=== PATIENT | female | born 1985 | race Two or more races ===

== ENCOUNTER 2019-04-23 04:40 | Inpatient (IN) | payer MEDICAID ==
[2019-04-23] MEDS ORDERED: LACTATED RINGER'S 1,000 ML IV (06:16)
[2019-04-23] MEDS ORDERED: MISOPROSTOL 200 MCG TAB PR ×2 (06:30→15:30)
[2019-04-23] MEDS ORDERED: CARBOPROST 250 MCG INJ IM ×2 (06:30→15:30)
[2019-04-23] MEDS ORDERED: BUTORPHANOL 2 MG INJ IV ×2 (06:30)
[2019-04-23] MEDS ORDERED: METHYLERGONOVINE 0.2 MG INJ IM ×2 (06:30→15:30)
[2019-04-23] MEDS ORDERED: OXYTOCIN 30 UNITS/LR 500 ML IV ×2 (06:30→15:30)
[2019-04-23] MEDS: MINERAL OIL LIGHT 10 ML VIAL TOP (06:30)
[2019-04-23] MEDS ORDERED: LIDOCAINE 1% (MPF) 30 ML INJ INJ (06:30)
[2019-04-23] MEDS ORDERED: IBUPROFEN 600 MG TAB PO (06:30)
[2019-04-23 07:32] LABS: ADD MAN DIFF? NO
[2019-04-23 07:37] LABS: WHITE BLOOD COUNT 9.6 10^3/ul (4.8-10.8)
[2019-04-23 07:37] LABS: BASOPHILS % 0.3 % (0.0-2.0); EOSINOPHILS # 0.1 10^3/ul (0.0-0.5); EOSINOPHILS % 0.7 % (0.0-7.0); HEMATOCRIT 38.3 % (37.0-47.0); HEMOGLOBIN 12.8 g/dl (12.0-16.0); LYMPHOCYTES # 1.5 10^3/ul (0.8-2.9); LYMPHOCYTES % 15.5 % (15.0-51.0); MEAN CORPUSCULAR HEMOGLOBIN 29.3 pg (29.0-33.0); MEAN CORPUSCULAR HGB CONC 33.4 g/dl (32.0-37.0); MEAN CORPUSCULAR VOLUME 87.6 fl (82.0-101.0); MEAN PLATELET VOLUME 10.4 fl (7.4-10.4); MONOCYTE # 0.8 10^3/ul (0.3-0.9); MONOCYTES % 8.1 % (0.0-11.0); NEUTROPHIL # 7.2 10^3/ul (1.6-7.5); NEUTROPHILS % 74.7 % (39.0-77.0); PLATELET COUNT 144 10^3/UL (140-415); RED BLOOD COUNT 4.37 10^6/ul (4.20-5.40); RED CELL DISTRIBUTION WIDTH 13.4 % (11.5-14.5)
[2019-04-23 08:00] LABS: INR 0.87; PROTIME 11.9 Sec (11.9-14.9); PT RATIO 0.9
[2019-04-23 08:01] LABS: PARTIAL THROMBOPLASTIN TIME 27.2 Sec (23.0-35.0)
[2019-04-23] MEDS: LACTATED RINGER'S 1,000 ML IV (08:03)
[2019-04-23] MEDS ORDERED: FENTAnyl 2MCG/ML-ROPIV 0.2% 100 ML (08:12)
[2019-04-23] MEDS ORDERED: NALOXONE (0.4 MG/ML) INJ IV (08:30)
[2019-04-23] MEDS ORDERED: DIPHENHYDRAMINE 50 MG INJ IV (08:30)
[2019-04-23] MEDS ORDERED: ONDANSETRON 4 MG INJ IV (08:30)
[2019-04-23] MEDS ORDERED: FENTAnyl 2MCG/ML-ROPIV 0.2% 100 ML BAG EPI (08:30)
[2019-04-23] MEDS: AMPICILLIN 2 GM/NS (PMX) 100 ML IV (08:35)
[2019-04-23 08:38] LABS: HEPATITIS B SURFACE ANTIGEN NEGATIVE (NEGATIVE)
[2019-04-23] MEDS: OXYTOCIN 30 UNITS/LR 500 ML IV ×4 (10:28→16:44)
[2019-04-23] MEDS ORDERED: AMPICILLIN 1 GM/NS (PMX) 50 ML IV (10:30)
[2019-04-23 12:41] LABS: HIV 1&2 ANTIBODY NEGATIVE (NEGATIVE)
[2019-04-23] MEDS: LACTATED RINGER'S 1,000 ML IV* ×2 (15:18→23:18)
[2019-04-23] MEDS ORDERED: HYDROCODONE/APAP (5/325) TAB PO (15:30)
[2019-04-23] MEDS ORDERED: ZOLPIDEM 5 MG TAB PO (15:30)
[2019-04-23] MEDS ORDERED: ACETAMINOPHEN 325 MG TAB PO (15:30)
[2019-04-23] MEDS ORDERED: DIPHENHYDRAMINE 25 MG CAP PO (15:30)
[2019-04-23 15:45] LABS: RAPID PLASMA REAGIN NONREACTIVE (NR)
[2019-04-23] MEDS: BENZOCAINE 20% 56 ML SPRAY TOP (16:43)
[2019-04-23] MEDS: LANOLIN HPA 1 PKT TOP (16:43)
[2019-04-23] MEDS: WITCH HAZEL/GLYCERIN PAD PR (16:43)
[2019-04-23] MEDS: IBUPROFEN 800 MG TAB PO (17:59)
[2019-04-23 20:44] LABS: RHOGAM PROFILE 1 1
[2019-04-24] MEDS: IBUPROFEN 800 MG TAB PO ×5 (00:31→23:31)
[2019-04-24] MEDS: LACTATED RINGER'S 1,000 ML IV* (07:18)
[2019-04-24 09:00] LABS: ADD MAN DIFF? NO
[2019-04-24 09:03] LABS: BASOPHILS % 0.2 % (0.0-2.0); EOSINOPHILS # 0.1 10^3/ul (0.0-0.5); EOSINOPHILS % 0.9 % (0.0-7.0); HEMATOCRIT 35.4 % (37.0-47.0); HEMOGLOBIN 11.9 g/dl (12.0-16.0); LYMPHOCYTES # 1.6 10^3/ul (0.8-2.9); LYMPHOCYTES % 15.4 % (15.0-51.0); MEAN CORPUSCULAR HEMOGLOBIN 29.6 pg (29.0-33.0); MEAN CORPUSCULAR HGB CONC 33.6 g/dl (32.0-37.0); MEAN CORPUSCULAR VOLUME 88.1 fl (82.0-101.0); MEAN PLATELET VOLUME 11.3 fl (7.4-10.4); MONOCYTE # 0.7 10^3/ul (0.3-0.9); MONOCYTES % 7.1 % (0.0-11.0); NEUTROPHIL # 7.7 10^3/ul (1.6-7.5); NEUTROPHILS % 75.6 % (39.0-77.0); PLATELET COUNT 150 10^3/UL (140-415); RED BLOOD COUNT 4.02 10^6/ul (4.20-5.40); RED CELL DISTRIBUTION WIDTH 13.4 % (11.5-14.5)
[2019-04-24 09:03] LABS: WHITE BLOOD COUNT 10.1 10^3/ul (4.8-10.8)
[2019-04-24] MEDS: SENNA/DOCUSATE NA (8.6MG/50MG) TAB PO (12:20)
[2019-04-25] MEDS: IBUPROFEN 800 MG TAB PO ×2 (05:29→11:50)
[2019-04-25] MEDS: VARICELLA VACCINE LIVE/PF 1,350 UNIT/0.5 ML ML SC* (09:00)
[2019-04-25] MEDS: MEASLES,MUMPS,RUBELLA VACCINE INJ SC* (09:00)
[2019-04-25] MEDS: DIPHTH/TET/ACEL PERTUSS (ADULT) 0.5 ML VIAL IM* (09:00)
[2019-04-25] MEDS: SENNA/DOCUSATE NA (8.6MG/50MG) TAB PO (10:24)
[2019-04-25] MEDS: MAGNESIUM HYDROXIDE 30ML CUP PO (10:24)
[2019-04-26 14:29] LABS: RUBELLA ANTIBODY - IGM <20.00 AU/mL
== END 2019-04-25 13:20 | disposition home or self-care (01) | DRG 807 ==
LOC: OBT 04:40 → L-D 04:40 → OBT 06:15 → L-D 06:15 → PP1 14:45
PROVIDERS: Obstetrics & Gynecology; Pediatrics
PROC: 10E0XZZ Delivery of Products of Conception, External Approach (ICD-10-PCS; principal; 2019-04-23)
PROC: 0HQ9XZZ Repair Perineum Skin, External Approach (ICD-10-PCS; 2019-04-23)
DX: O70.9 Perineal laceration during delivery, unspecified (principal); Z37.0 Single live birth; Z3A.39 39 weeks gestation of pregnancy
CPT/HCPCS: 62322; 76815; 85025; 85610; 85730; 86592; 86703; 86762; 86850; 86870; 86885; 86900; 86901; 87340; 90716; 99464